=== PATIENT | female | born 1990 | race Caucasian/White ===

== ENCOUNTER → 2019-03-27 | Outpatient (REF) | payer OTHER | LOC: M SFHCLERA 19:12 | PROVIDERS: ATTEND Nurse Practitioner Family | DX: J02.9 Acute pharyngitis, unspecified (principal) ==

== ENCOUNTER → 2023-03-12 | Outpatient (REF) | LOC: M LAB 07:55 | PROVIDERS: ATTEND Nurse Practitioner Adult Health | DX: Z02.89 Encounter for other administrative examinations (principal) ==

== ENCOUNTER → 2023-05-27 | Outpatient (REF) | LOC: M EMP 11:46 | PROVIDERS: ATTEND Family Medicine | DX: Z11.52 Encounter for screening for COVID-19 (principal) ==

== ENCOUNTER → 2025-03-30 | Outpatient (REF) | LOC: M EMP 12:05 | PROVIDERS: ATTEND Family Medicine | DX: Z11.52 Encounter for screening for COVID-19 (principal) ==

== ENCOUNTER → 2025-06-15 | Outpatient (CLI) | payer BC ==
[2025-06-15 15:25] LABS: PLATELET COUNT, AUTOMATED 290 10^3/uL (150-450)
== END ==
LOC: M PLALAB 12:50
PROVIDERS: ATTEND Student in an Organized Health Care Education/Training Program
DX: N92.0 Excessive and frequent menstruation with regular cycle (principal); N97.0 Female infertility associated with anovulation